=== PATIENT | female | born 1975 | race Caucasian/White ===

== ENCOUNTER → 2016-10-31 | Outpatient (CLI) | payer BC ==
--- NOTE | 2016-11-01 13:46 | MY ---
EXAMINATION: Right digital diagnostic mammogram with targeted ultrasound. HISTORY: Screening exam. Comparison is made to previous studies dated 10/14/2016 . FINDINGS: A right LM view is obtained. Spot compression images obtained in the CC and MLO project ions. Overall, the previously demonstrated two-view asymmetry within the upper outer right breast compress es. Following compression, this is similar in appearance to the remaining glandular tissue. Sonographic images obtained within this region demonstrate no suspicious mass or fluid collection. T his area likely represents summation artifact. IMPRESSION: BI-RADS category II - Benign finding. Continued screening according to ACR-ACS guidelin es suggested. THE FALSE-NEGATIVE RATE OF MAMMOGRAM IS APPROXIMATELY 10%. MANAGEMENT OF A PALPABLE ABNORMALITY MUST BE BASED UPON CLINICAL GROUNDS. SENSITIVITY FOR DETECTION OF ABNORMALITIES IN DENSE BREASTS IS LOW. NOTE: A letter will be sent to the patient regarding findings. [facility] -- [place] [phone] - FAX [phone]
== END | disposition home or self-care (01) ==
LOC: MW.MAM 10:32
PROVIDERS: ATTEND Nurse Practitioner Family
DX: N64.89 Other specified disorders of breast (principal)
CPT/HCPCS: 76642; G0206